=== PATIENT | male | born 1990 | race African-American/Black ===

== ENCOUNTER 2018-08-16 19:30 | Emergency (ER) | payer MEDICAID ==
[~2018-08-16] VITALS: Ht 172.7 cm; Wt 63.5 kg
[2018-08-16] MEDS ORDERED: FENTANYL CITRATE/PF 100MCG/2 ML INJ IV NR (19:45)
[2018-08-16] MEDS ORDERED: FENTANYL CITRATE/PF 100MCG/2 ML INJ ONE (19:49)
--- NOTE | 2018-08-16 19:55 | NUR ---
XRAYS DONE, ELEVATED ON PILLOW, ICE PACK APPLIED
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
[2018-08-16] MEDS ORDERED: ONDANSETRON HCL INJ 2MG/ML 2ML 2 MG/ML VIAL ONE (20:39)
[2018-08-16] MEDS ORDERED: CEFAZOLIN SOD 1 GM/NS 50ML 50 ML IV ONE (20:39)
[2018-08-16] MEDS ORDERED: HYDROMORPHONE 1MG/1ML INJ IV STA (20:39)
[2018-08-16] MEDS ORDERED: HYDROMORPHONE 2MG/ML 2 MG/ML ML ONE (20:39)
[2018-08-16] MEDS ORDERED: TETANUS/DIPHTHERIA TOX ADULT 0.5 ML SYR ONE (20:40)
--- NOTE | 2018-08-16 20:41 | NUR ---
TRANSFER INITIATED TO [facility]
[2018-08-16] MEDS ORDERED: TETANUS/DIPHTHERIA TOX ADULT 0.5 ML SYR IM STA (20:43)
[2018-08-16] MEDS ORDERED: CEFAZOLIN SOD 1 GM/NS 50ML 50 ML IV STA (20:44)
[2018-08-16] MEDS ORDERED: HYDROMORPHONE 1MG/1ML INJ IV PRN (20:45)
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
--- NOTE | 2018-08-16 21:06 | NUR ---
PEDAL PULSE DIMINISHED, CAP REFILL 2 SECONDS, DR WELSH AWARE. PLACED POSTERIOR SPLINT WITH 4 INCH FIBERGLASS, POST APPLICATION, CAP REFILL 2 SECONDS. TOLERATED WELL, AWAKE ALERT SKIN W/D RESP NONLAB. NAD NOTED.
--- NOTE | 2018-08-16 21:20 | NUR ---
REPORT TO [employer].
== END 2018-08-16 21:20 | disposition short-term general hospital (02) ==
LOC: ER 19:30
DX: S82.251B Displaced comminuted fracture of shaft of right tibia, initial encounter for open fracture type I or II (principal); S82.454 Nondisplaced comminuted fracture of shaft of right fibula; W23.0XXA Caught, crushed, jammed, or pinched between moving objects, initial encounter; Y93.I9 Activity, other involving external motion; Y92.488 Other paved roadways as the place of occurrence of the external cause
CPT/HCPCS: 73610; 73620; 90471; 90714; 99284; J0690; J1170; J2405